=== PATIENT | female | born 1960 | race Caucasian/White ===

== ENCOUNTER 2017-12-16 11:05 | Emergency (ER) | payer OTHER ==
[~2017-12-16] VITALS: Ht 152.4 cm; Wt 62.6 kg
[2017-12-16 11:08] VITALS: BP 135/85; Ht 152.4 cm; Wt 62.6 kg
== END 2017-12-16 12:28 | disposition home or self-care (01) ==
LOC: ED 11:05
DX: J20.9 Acute bronchitis, unspecified (principal); J44.9 Chronic obstructive pulmonary disease, unspecified; Z71.6 Tobacco abuse counseling
CPT/HCPCS: 82962; 99406; J1100; Q0092

== ENCOUNTER 2018-05-19 07:17 | Emergency (ER) | payer OTHER ==
[~2018-05-19] VITALS: Ht 152.4 cm; Wt 62.1 kg
[2018-05-19 07:22] VITALS: Ht 152.4 cm; Wt 62.1 kg
[2018-05-19 08:02] VITALS: BP 148/79
== END 2018-05-19 08:01 | disposition home or self-care (01) ==
LOC: ED 07:17
DX: N39.0 Urinary tract infection, site not specified (principal); I10 Essential (primary) hypertension; E11.9 Type 2 diabetes mellitus without complications; Z88.0 Allergy status to penicillin

== ENCOUNTER 2019-10-29 18:43 | Emergency (ER) | payer OTHER ==
[~2019-10-29] VITALS: Ht 149.9 cm; Wt 60.8 kg
[2019-10-29 19:39] VITALS: Ht 149.9 cm; Wt 60.8 kg
[2019-10-29 21:30] VITALS: BP 118/55
== END 2019-10-29 21:30 | disposition home or self-care (01) ==
LOC: ED 18:43
DX: J40 Bronchitis, not specified as acute or chronic (principal); F17.210 Nicotine dependence, cigarettes, uncomplicated; I10 Essential (primary) hypertension; E11.9 Type 2 diabetes mellitus without complications; E78.00 Pure hypercholesterolemia, unspecified; Z88.0 Allergy status to penicillin
CPT/HCPCS: 99406; J7512; J7613; J7644